=== PATIENT | female | born 1965 | race African-American/Black ===

== ENCOUNTER 2017-01-25 09:25 | Observation (INO) | payer SELFPAY ==
[~2017-01-25] VITALS: Ht 165.1 cm; Wt 52.3 kg
[~2017-01-25 09:25] MED LIST: SULF1SOL4 OD; Z.0.NO CURRENT MEDS
[2017-01-25 09:28] VITALS: BP 118/72; PULSE 120; RESP 24; TEMP 98; O2SAT 100
--- NOTE | 2017-01-25 09:54 | PD ---
HPI Chief Complaint: Cold / Flu Symptoms Time Seen by Provider: 09:48 Travel History International Travel<30 days: No Contact w/Intl Traveler<30days: No Traveled to known affect area: No History of Present Illness HPI 51-year-old female presents to the emergency Department with complaint of nasal congestion, cough, chest congestion, fever, body aches since Friday. Reports MAXIMUM TEMPERATURE of 100.8. Has not taken her temperature since Friday but has felt subjective fever and chills. Denies sore throat or ear pain. Denies chest pain, chest tightness, shortness breath, wheezing. Denies nausea, vomiting, abdominal pain. Reports decreased appetite. Denies change in urine or stool. Has tried taking TheraFlu with good relief of symptoms for a short amount of time. No one else with similar symptoms. Did not receive the flu vaccine this year. Does not have an established primary care provider at this time. Denies significant past medical history. Denies allergies. No other modifying factors or associated signs and symptoms. PFSH Past Medical History Medical History: Denies Significant Hx Hx Anticoagulant Therapy: No Heart Rhythm Problems: No Cardiac Catheterization: No Cardiovascular Problems: No High Cholesterol: No Chemotherapy: No Congestive Heart Failure: No Cerebrovascular Accident: No Diabetes: No Hypertension: No Respiratory: No Myocardial Infarction: No ?: Unknown LMP: 01/20/17 Tubal Ligation: Yes Past Surgical History Coronary Artery Bypass Graft: No Social History Alcohol Use: Yes Tobacco Use: Yes Substance Use: No Allergies-Medications (Allergen,Severity, Reaction): Coded Allergies: No Known Allergies (Verified , 01/25/17) Reported Meds & Prescriptions Reported Meds & Active Scripts Active Bleph-10 (Sulfacetamide Sodium) 5 Ml Soln 1 Drop OD Q3H Reported No Current Meds (Miscellaneous Medication) [facility] Review of Systems Except as stated in HPI: all other systems reviewed are Neg Physical Exam Narrative GENERAL: Thin, female patient, in no acute distress; afebrile , nontoxic-appearing SKIN: Warm and dry. No rash. HEAD: Atraumatic. Normocephalic. EYES: Pupils equal and round at 3 mm with brisk reaction. No scleral icterus. No injection or drainage. PERRLA. ENT: Mucosa pink and moist. No erythema or exudates. No uvular edema. No uvular , palatal, or tonsillar deviation. Airway patent. EARS: Bilateral pinnae and external canals appear within normal limits. Bilateral tympanic membranes without erythema, dullness or perforation. NECK: Trachea midline. No lymphadenopathy. CARDIOVASCULAR: Tachycardic rate and rhythm in the 110's. No murmur appreciated. RESPIRATORY: No accessory muscle use. Clear to auscultation. Breath sounds equal bilaterally. GASTROINTESTINAL: Abdomen soft, non-tender, nondistended. Hepatic and splenic margins not palpable. Bowel sounds are active 4 quadrants. MUSCULOSKELETAL: No obvious deformities. No clubbing. No cyanosis. No edema. NEUROLOGICAL: Awake and alert. Oriented 3. No obvious cranial nerve deficits. Motor grossly within normal limits. Normal speech. Moves all extremities. 5/5 strength to all extremities. PSYCHIATRIC: Appropriate mood and affect; insight and judgment normal. Data Data Last Documented VS Vital Signs Date Time Temp Pulse Resp B/P Pulse Ox O2 Delivery O2 Flow Rate FiO2 01/25/17 09:28 98.0 120 24 118/72 100 Room Air Orders Influenzae A/B Antigen (01/25/17 09:40) Ibuprofen (Motrin) (01/25/17 10:00) Chest, Pa & Lat (01/25/17 09:44) MDM Medical Decision Making Medical Screen Exam Complete: Yes Emergency Medical Condition: Yes Medical Record Reviewed: Yes Differential Diagnosis Influenza, pneumonia, bronchitis, URI Narrative Course 51-year-old female with cold/flu symptoms since Friday. She is afebrile and nontoxic-appearing in the ER. Her heart rate is in the 110s on physical exam. Patient denies chest pain, chest tightness, shortness of breath. Her lungs are clear and equal throughout. She is in no acute distress and oxygen saturation is 100% on room air. Patient given Gatorade at the bedside and is tolerating well without nausea or vomiting. Ibuprofen ordered. Influenza ordered. Chest x-ray ordered. 1038: Last 24 hours Impressions Chest X-Ray 01/25/17 0944 Signed Impressions: Service Date/Time: Friday, January 25, 2017 10:11 - CONCLUSION: Right middle lobe pneumonia. Jeannette Suárez MD 1045: I reevaluated the patient and her heart rate is still elevated at 110 bpm. Patient is mildly tachypnea in the low 20s. She is in no acute distress and without retractions or tachypnea. I discussed the patietn with Dr. Almaraz, my attending physician. She agrees the patient needs to be moved to a medical bed for further treatment and evaluation. The patient agrees to this plan also. See Dr. Almaraz note for final disposition. Diagnosis Primary Impression: Right middle lobe pneumonia Qualified Code: J18.1 - Pneumonia of right middle lobe due to infectious organism Cristin Cruz [facility] Jan 25, 2017 09:54
[2017-01-25] MEDS ORDERED: IBUPROFEN 800 MG TAB PO ONE (10:00)
--- NOTE | 2017-01-25 10:20 | RADRPT ---
EXAM DATE/TIME: 01/25/2017 10:11 [place] COMPARISON: No previous studies available for comparison. INDICATIONS : Cough and Congestion MEDICAL HISTORY : None. SURGICAL HISTORY : None. ENCOUNTER: Initial ACUITY: 4 - 6 days PAIN SCORE: 5/10 LOCATION: Bilateral chest FINDINGS: PA lateral views of the lungs are significant for air space consolidation involving the right middle lobe consistent with pneumonia. The remainder of the lungs are clear. Heart size is normal. Osseous s tructures are unremarkable. CONCLUSION: Right middle lobe pneumonia. Jeannette Suárez MD on January 25, 2017 at 10:18 Board Certified Radiologist. This report was verified electronically.
[2017-01-25] MEDS ORDERED: SODIUM CHLORIDE 0.9% FLUSH 10 ML FLUSH IVF PRN (11:15)
[2017-01-25] MEDS ORDERED: cefTRIAXone INJ 1,000 MG in SODIUM CHLORIDE 0.9% INJ 100 ML IV ONE (11:15)
[2017-01-25] MEDS ORDERED: AZITHROMYCIN INJ 500 MG in SODIUM CHLOR 0.9% 250 ML INJ 250 ML IV ONE (11:15)
[2017-01-25 11:26] LABS: AUTOMATED NEUTROPHIL # 11.5 TH/MM3 (1.8-7.7); BASOPHIL # 0.1 TH/MM3 (0-0.2); BASOPHIL % 0.6 % (0.0-2.0); HEMATOCRIT 33.4 % (35.0-46.0); HEMO FLAGS DIFF FINAL; LYMPH % 4.7 % (9.0-44.0); LYMPHOCYTE # 0.6 TH/MM3 (1.0-4.8); MEAN CELL VOLUME 89.6 FL (80.0-100.0); MEAN CORPUSCULAR HEMOGLOBIN 30.9 PG (27.0-34.0); MEAN CORPUSCULAR HGB CONC 34.4 % (32.0-36.0); MONO % 3.9 % (0.0-8.0); NEUT % 90.8 % (16.0-70.0); PLATELET COUNT 240 TH/MM3 (150-450); RED BLOOD COUNT 3.73 MIL/MM3 (4.00-5.30); WHITE BLOOD COUNT 12.7 TH/MM3 (4.0-11.0)
--- NOTE | 2017-01-25 11:30 | PD ---
Physical Exam Date Seen by Provider: Jan 25, 2017 Time Seen by Provider: 11:20 Narrative Patient was sent to us from fast track because of pneumonia. Patient reports onset of symptoms approximately 4 days ago. She has had a cough and fever. Chest x-ray done in fast track shows a right middle lobe pneumonia. Patient denies any known drug allergies. Data Data Last Documented VS Vital Signs Date Time Temp Pulse Resp B/P Pulse Ox O2 Delivery O2 Flow Rate FiO2 01/25/17 11:45 17 01/25/17 10:57 99 Room Air 01/25/17 09:28 98.0 120 118/72 Orders Influenzae A/B Antigen (01/25/17 09:40) Ibuprofen (Motrin) (01/25/17 10:00) Chest, Pa & Lat (01/25/17 09:44) Complete Blood Count With Diff (01/25/17 11:01) Comprehensive Metabolic Panel (01/25/17 11:01) Lactic Acid Sepsis Protocol (01/25/17 11:01) Blood Culture (01/25/17 11:01) Sodium Chloride 0.9% Flush (Ns Flush) (01/25/17 11:15) Ceftriaxone Inj (Rocephin Inj) (01/25/17 11:15) Azithromycin Inj (Zithromax Inj) (01/25/17 11:15) Sodium Chlor 0.9% 1000 Ml Inj (Ns 1000 M (01/25/17 12:15) Sodium Chlor 0.9% 1000 Ml Inj (Ns 1000 M (01/25/17 12:15) Admit Order (Ed Use Only) (01/25/17 12:15) Labs Laboratory Tests Test 01/25/17 01/25/17 11:11 11:20 Lactic Acid Level 4.8 mmol/L White Blood Count 12.7 TH/MM3 Red Blood Count 3.73 MIL/MM3 Hemoglobin 11.5 GM/DL Hematocrit 33.4 % Mean Corpuscular Volume 89.6 FL Mean Corpuscular Hemoglobin 30.9 PG Mean Corpuscular Hemoglobin 34.4 % Concent Red Cell Distribution Width 14.0 % Platelet Count 240 TH/MM3 Mean Platelet Volume 8.2 FL Neutrophils (%) (Auto) 90.8 % Lymphocytes (%) (Auto) 4.7 % Monocytes (%) (Auto) 3.9 % Eosinophils (%) (Auto) 0.0 % Basophils (%) (Auto) 0.6 % Neutrophils # (Auto) 11.5 TH/MM3 Lymphocytes # (Auto) 0.6 TH/MM3 Monocytes # (Auto) 0.5 TH/MM3 Eosinophils # (Auto) 0.0 TH/MM3 Basophils # (Auto) 0.1 TH/MM3 CBC Comment DIFF FINAL Differential Comment Sodium Level 133 MEQ/L Potassium Level 3.1 MEQ/L Chloride Level 101 MEQ/L Carbon Dioxide Level 19.0 MEQ/L Anion Gap 13 MEQ/L Blood Urea Nitrogen 13 MG/DL Creatinine 1.25 MG/DL Estimat Glomerular Filtration 55 ML/MIN Rate Random Glucose 192 MG/DL Calcium Level 8.7 MG/DL Total Bilirubin 0.7 MG/DL Aspartate Amino Transf 21 U/L (AST/SGOT) Alanine Aminotransferase 20 U/L (ALT/SGPT) Alkaline Phosphatase 96 U/L Total Protein 7.6 GM/DL Albumin 3.0 GM/DL MDM Supervised Visit with KATRINA: Yes Narrative Course Last Impressions Chest X-Ray 01/25/17 0944 Signed Impressions: Service Date/Time: Wednesday, January 25, 2017 10:11 - CONCLUSION: Right middle lobe pneumonia. Jeannette Suárez MD The chest x-ray was independently viewed by me. I have initiated a pneumonia workup including blood cultures, sputum culture, empiric antibiotic treatment and IV fluid resuscitation. CBC & BMP Diagram 01/25/17 11:20 Lactic acid is 4.8. Diagnosis Primary Impression: Right middle lobe pneumonia Qualified Code: J18.1 - Pneumonia of right middle lobe due to infectious organism Admitting Information Admitting Physician Requests: Admit Additional Instruction: Ibuprofen or Tylenol as directed and as needed to reduce fever; may alternate ibuprofen and Tylenol as needed every 3 hours to minimize fever [id number] cough and cold medications as directed and as needed for symptom management Get plenty of sleep/rest Drink plenty of fluids to prevent dehydration [place] diet to encourage nutrition such as crackers, fruit, applesauce, toast, soup etc. Use an air humidifier/turn off ceiling fans Follow-up with your primary care provider within 1 day Return immediately to the emergency department with worsening of symptoms Scripts No Active Prescriptions or Reported Meds Condition: Stable Nati Almaraz MD Jan 25, 2017 11:30
[2017-01-25 11:43] LABS: ANION GAP 13 MEQ/L (5-15); AST (GOT) 21 U/L (15-37); BLOOD UREA NITROGEN 13 MG/DL (7-18); CHLORIDE 101 MEQ/L (98-107); GLOMERULAR FILTRATION RATE 55 ML/MIN (>89); POTASSIUM 3.1 MEQ/L (3.5-5.1); SODIUM (NA) 133 MEQ/L (136-145)
[2017-01-25 11:47] LABS: ALKALINE PHOSPHATASE 96 U/L (45-117); ALT (GPT) 20 U/L (10-53); TOTAL BILIRUBIN ADULT 0.7 MG/DL (0.2-1.0)
[2017-01-25] MEDS ORDERED: SODIUM CHLOR 0.9% 1000 ML INJ 1,000 ML IV ONE ×2 (12:15)
[2017-01-25 13:18] LABS: LACTIC ACID GHOST NOT REPORTABLE
[2017-01-25 13:32] VITALS: BP 120/77; PULSE 96; RESP 18; TEMP 98.9; O2SAT 99
[2017-01-25 13:38] VITALS: BP 120/77; TEMP 98.9
[2017-01-25 13:50] VITALS: BP 137/91; PULSE 107; RESP 20; TEMP 99
--- NOTE | 2017-01-25 14:11 | HHI.HP ---
HPI Service Family Medicine Primary Care Physician No Primary Care Physician Admission Diagnosis pneumonia Diagnoses: International Travel<30 Days: No Contact w/Intl Traveler<30days: No Known Affected Area: No History of Present Illness Patient is a 51-year-old female with no significant past medical history presenting due to cough, fever, chills, body aches found to have a right middle lobe pneumonia. Her symptoms have been getting worse and this prompted her to go to the ED. Patient reports that she developed a cough on Friday night. Cough is nonproductive. She has had a fever with a Tmax of 100.8 on Friday, also endorses chills, myalgias, decreased appetite. She tried taking Theraflu which did not help significantly. Pts boyfriend, who is currently hospitalized for pneumonia on , has had similar symptoms and reports that several of his coworkers have also been ill. Denies SOB, she endorses chest pain which she attributes to persistent coughing. Pt denies any drug allergies. (Stephanie Yates MD R2) Review of Systems Constitutional: COMPLAINS OF: Fever, Weight loss, Chills Eyes: DENIES: Vision loss Ears, nose, mouth, throat: DENIES: Throat pain Respiratory: COMPLAINS OF: Cough, DENIES: Sputum production, Shortness of breath Cardiovascular: COMPLAINS OF: Chest pain Gastrointestinal: COMPLAINS OF: Nausea, DENIES: Abdominal pain Musculoskeletal: COMPLAINS OF: Muscle aches Integumentary: DENIES: Rash Neurologic: COMPLAINS OF: Tremor (shivering which she attributes to chills) Psychiatric: DENIES: Mood changes (Stephanie Yates MD R2) Past Family Social History Past Medical History Denies Past Surgical History BTL Reported Medications Reported Meds & Active Scripts Active No Active Prescriptions or Reported Medications (Stephanie Yates MD R2) Allergies: Coded Allergies: No Known Allergies (Verified , 01/25/17) Active Ordered Medications Inpatient Medications Acetaminophen (Tylenol) 650 mg Q4H PRN PO TEMP > 100.4 Last administered on 01/25 16:16; Start 01/25/17 at 14:30 Albuterol/ Ipratropium (Duoneb Neb) 1 ampule Q3HR NEB PRN NEB SOB/WHEEZING Last administered on 01/25/17 20:51; Start 01/25/17 at 20:15 Azithromycin (Zithromax) 500 mg DAILY PO ; Start 01/26/17 at 09:00 Azithromycin 500 mg/Sodium Chloride 250 ml @ 250 mls/hr ONCE ONCE IV Last administered on 01/25/17 11:22; Start 01/25/17 at 11:15; Stop 01/25/17 at 12:14; Status DC Ceftriaxone Sodium 1000 mg/ Sodium Chloride 100 ml @ 200 mls/hr ONCE ONCE IV Last administered on 01/25/17 11:21; Start 01/25/17 at 11:15; Stop 01/25/17 at 11: 44; Status DC Ceftriaxone Sodium/Sodium Chloride (Rocephin Inj/NS Inj) 100 ml @ 200 mls/hr Q24H IV Last administered on 01/25/17 16:14; Start 01/25/17 at 15:00 Flumazenil (Romazicon Inj) 0.2 mg Q1M PRN IV PUSH SEE LABEL COMMENTS; Start 01/25/17 at 14:30 Heparin Sodium (Porcine) (Heparin Inj) 5,000 units Q8H SQ Last administered on 01/25/17 16:14; Start 01/25/17 at 16:00 Ibuprofen 800 mg 800 mg ONCE ONCE PO Last administered on 01/25/17 10:47; Start 01/25/17 at 10:00; Stop 01/25/17 at 10:01; Status DC Lorazepam (Ativan Inj) 2 mg Q15M PRN IV PUSH CIWA > 20; Start 01/25/17 at 14:30 Lorazepam (Ativan) 2 mg Q2H PRN PO CIWA 11-14; Start 01/25/17 at 14:30 Magnesium Hydroxide (Milk Of Magnesia Liq) 30 ml Q12H PRN PO CONSTIPATION; Start 01/25/17 at 14:30 Naloxone HCl (Narcan Inj) 0.4 mg UNSCH PRN IV SEE LABEL COMMENTS; Start at 14:30 Ondansetron HCl (Zofran Inj) 4 mg Q6H PRN IVP NAUSEA OR VOMITING; Start at 14:30 Sodium Chloride (NS 1000 ml Inj) 1,000 ml @ 100 mls/hr Q10H IV Last administered on 01/25/17 14:58; Start 01/25/17 at 14:30 Sodium Chloride 2 ml 2 ml BID IVF Last administered on 01/25/17t 20:51; Start at 21:00 Family History Denies Mother and father having any medical problems Social History Lives at home with indigo. Smokes 1PPD Drinks 4 beers daily Denies illicit drug use Currently works at [employer], for the past 14 years (Stephanie Yates MD R2) Physical Exam Vital Signs Vital Signs Date Time Temp Pulse Resp B/P Pulse Ox O2 Delivery O2 Flow Rate FiO2 01/25/17 13:38 98.9 98 17 120/77 99 01/25/17 13:32 98.9 96 18 120/77 99 Room Air 01/25/17 11:45 17 01/25/17 10:57 18 99 Room Air 01/25/17 09:28 98.0 120 24 118/72 100 Room Air Physical Exam GENERAL: This is a well-nourished, well-developed patient, shivering in bed, in no acute respiratory distress. SKIN: No rashes, ecchymoses or lesions. HEAD: Atraumatic. Normocephalic. EYES: Pupils equal round and reactive. Extraocular motions intact. No scleral icterus. No injection or drainage. ENT: Nose without bleeding, purulent drainage or septal hematoma. Throat without erythema, tonsillar hypertrophy or exudate. Uvula midline. Airway patent. NECK: Trachea midline. No JVD or lymphadenopathy. Supple, nontender, no meningeal signs. CARDIOVASCULAR: Tachycardic rate, regular rhythm without murmurs, gallops, or rubs. RESPIRATORY: Clear to auscultation. Breath sounds equal bilaterally. No wheezes , rales, or rhonchi. Normal work of breathing. GASTROINTESTINAL: Abdomen soft, non-tender, nondistended. No hepato-splenomegaly , or palpable masses. No guarding. + Bowel sounds MUSCULOSKELETAL: Extremities without clubbing, cyanosis, or edema. No joint tenderness, effusion, or edema noted. No calf tenderness. Negative Homans sign bilaterally. NEUROLOGICAL: Awake and alert. Cranial nerves II through XII intact. Motor and sensory grossly within normal limits. Five out of 5 muscle strength in all muscle groups. Normal speech. Laboratory Laboratory Tests Test 01/25/17 01/25/17 01/25/17 11:11 11:20 13:20 Lactic Acid Level 4.8 1.2 White Blood Count 12.7 Red Blood Count 3.73 Hemoglobin 11.5 Hematocrit 33.4 Mean Corpuscular Volume 89.6 Mean Corpuscular Hemoglobin 30.9 Mean Corpuscular Hemoglobin 34.4 Concent Red Cell Distribution Width 14.0 Platelet Count 240 Mean Platelet Volume 8.2 Neutrophils (%) (Auto) 90.8 Lymphocytes (%) (Auto) 4.7 Monocytes (%) (Auto) 3.9 Eosinophils (%) (Auto) 0.0 Basophils (%) (Auto) 0.6 Neutrophils # (Auto) 11.5 Lymphocytes # (Auto) 0.6 Monocytes # (Auto) 0.5 Eosinophils # (Auto) 0.0 Basophils # (Auto) 0.1 CBC Comment DIFF FINAL Differential Comment Sodium Level 133 Potassium Level 3.1 Chloride Level 101 Carbon Dioxide Level 19.0 Anion Gap 13 Blood Urea Nitrogen 13 Creatinine 1.25 Estimat Glomerular Filtration 55 Rate Random Glucose 192 Calcium Level 8.7 Total Bilirubin 0.7 Aspartate Amino Transf 21 (AST/SGOT) Alanine Aminotransferase 20 (ALT/SGPT) Alkaline Phosphatase 96 Total Protein 7.6 Albumin 3.0 Date/Time Procedure Status Source Growth 01/25/17 11:20 Aerobic Blood Culture Received Blood Peripheral Pending 01/25/17 11:20 Anaerobic Blood Culture Received Blood Peripheral Pending 01/25/17 10:30 Influenza Types A,B Antigen ([facility]UCKER) - Final Complete Nasal Aspirate NEGATIVE FOR FLU A AND B ANTIGEN.... (Stephanie Yates MD R2) Result Diagram: 01/25/17 1120 01/25/17 1120 Septic Shock Reassessment Heart: Regular rate and rhythm Lungs: Clear Skin: Warm Peripheral Pulses: Bounding Right Radial Bounding Left Radial Bounding Right Popliteal Bounding Left Popliteal Bounding Right Dorsalis Pedis Bounding Left Dorsalis Pedis Bounding Right Posterior Tibial Bounding Left Posterior Tibial Capillary Refill: <2 seconds (Stephanie Yates MD R2) Assessment and Plan Assessment and Plan Patient is a 51-year-old female with no significant past medical history admitted for treatment of right middle lobe pneumonia. Code Status Full Discussed Condition With dw Dr. Najera wdw Dr. Pena (Stephanie Yates MD R2) Attending Attestation Patient seen and examined. Case reviewed and discussed with the resident team. Agree with plan of care as discussed with me and documented in the resident note. pt seen on admission (Beverly Pnea MD) Problem List: (1) Right middle lobe pneumonia Status: Acute Plan: Patient presented due to fever, chills, body aches, persisting cough. Her boyfriend is hospitalized currently with pneumonia as well. Chest x-ray showing a right middle lobe pneumonia. -Rocephin 1 g IV daily -Azithromycin 500 mg po daily -DuoNeb's prn SOB -Tylenol PRN -Zofran PRN (2) Sepsis Status: Acute Plan: Patient meets sepsis criteria with elevated heart rate to 120, leukocytosis with WBC count of 12.7, and a left shift, identified source of infection: Pneumonia. On admission lactic acid elevated to 4.8, 1.2 when rechecked. -See fluids below -See plan for pneumonia (3) Elevated serum creatinine Status: Acute Plan: Creatinine slightly elevated at 1.25. Last creatinine in the EMR is from 08/2010 and was 0.59. Likely due to decreased PO intake. -Fluid as below -Monitor Daily BMP (4) Alcohol use Status: Acute Plan: Patient reports drinking 4 beers per night. Denies hx of withdrawals -We'll check blood ethanol level -[facility] protocol (5) Blood glucose elevated Status: Acute Plan: Blood glucose elevated to 192 despite patient having a decreased appetite over the past several days. -We'll check hemoglobin A1c and UA for glucose/ketones -Patient does not have a primary care provider at this time. (6) FEN/PPX Status: Acute Plan: Fluids: Normal saline at 100 MLS/hour Electrolytes: Sodium slightly low at 133, see fluids above, potassium low at 3.1 , patient given 40 mEq of potassium chloride 1, continue to monitor Nutrition: Regular diet DVT PPX: Heparin (Stephanie Yates MD R2) Problem Qualifiers (1) Right middle lobe pneumonia: Qualified Code: J18.1 - Pneumonia of right middle lobe due to infectious organism (2) Sepsis: Qualified Code: A41.9 - Sepsis, due to unspecified organism Stephanie Yates MD R2 Jan 25, 2017 14:11 Beverly Pena MD Jan 26, 2017 13:59
[2017-01-25] MEDS ORDERED: ONDANSETRON HCL 4 MG/2 ML VIAL IVP PRN (14:30)
[2017-01-25] MEDS ORDERED: NALOXONE HCL 0.4 MG/ML AMP IV PRN (14:30)
[2017-01-25] MEDS ORDERED: MAGNESIUM HYDROXIDE SUSP 30 ML CUP PO PRN (14:30)
[2017-01-25] MEDS ORDERED: ACETAMINOPHEN 325 MG TAB PO PRN (14:30)
[2017-01-25] MEDS ORDERED: LORazepam 2 MG TAB PO PRN (14:30)
[2017-01-25] MEDS ORDERED: FLUMAZENIL 0.5 MG/5 ML VIAL IV PUSH PRN (14:30)
[2017-01-25] MEDS ORDERED: LORazepam 2 MG/ML VIAL IV PUSH PRN ×4 (14:30)
[2017-01-25] MEDS ORDERED: LORazepam 1 MG TAB PO PRN (14:30)
[2017-01-25] MEDS: SODIUM CHLOR 0.9% 1000 ML INJ 1,000 ML IV SCH ×2 (14:58→22:46)
[2017-01-25] MEDS: cefTRIAXone INJ 1,000 MG in SODIUM CHLORIDE 0.9% INJ 100 ML IV SCH (16:14)
[2017-01-25] MEDS: HEPARIN SODIUM - SQ 10,000 UNITS/ML VIAL SQ SCH ×2 (16:14→22:45)
[2017-01-25 20:00] VITALS: BP 106/67; PULSE 100; RESP 16; TEMP 99.9; O2SAT 97
[2017-01-25] MEDS ORDERED: RESP: ALBUTEROL 2.5 MG/IPRATROPIUM 0.5 MG NEB (PRN) NEB (20:15)
[2017-01-25] MEDS: SODIUM CHLORIDE 0.9% FLUSH 10 ML FLUSH IVF SCH (20:51)
[2017-01-25 20:54] VITALS: O2SAT 96
[2017-01-25] MEDS ORDERED: POTASSIUM CHLORIDE 10 MEQ CONTROLLED RELEASE TAB PO ONE (22:00)
[2017-01-25] MEDS ORDERED: cloNIDine HCL 0.1 MG TAB PO PRN (22:15)
[2017-01-26] VITALS (8 sets, daily range): BP systolic 85–134; BP diastolic 49–92; PULSE 70–101; RESP 17–22; TEMP 97–101; O2SAT 99–100
[2017-01-26 08:20] LABS: BASOPHIL # 0.1 TH/MM3 (0-0.2); BASOPHIL % 0.5 % (0.0-2.0); EOSINOPHIL % 0.1 % (0.0-4.0); HEMO FLAGS DIFF FINAL; LYMPH % 10.9 % (9.0-44.0); LYMPHOCYTE # 1.9 TH/MM3 (1.0-4.8); MEAN CELL VOLUME 91.2 FL (80.0-100.0); MEAN CORPUSCULAR HEMOGLOBIN 30.4 PG (27.0-34.0); MEAN CORPUSCULAR HGB CONC 33.4 % (32.0-36.0); MONO % 6.9 % (0.0-8.0); NEUT % 81.6 % (16.0-70.0); PLATELET COUNT 235 TH/MM3 (150-450); RED BLOOD COUNT 3.07 MIL/MM3 (4.00-5.30); RED CELL DISTRIBUTION WIDTH 13.9 % (11.6-17.2); WHITE BLOOD COUNT 17.2 TH/MM3 (4.0-11.0)
[2017-01-26 08:58] LABS: ALKALINE PHOSPHATASE 90 U/L (45-117); ALT (GPT) 22 U/L (10-53); ANION GAP 9 MEQ/L (5-15); AST (GOT) 33 U/L (15-37); BICARBONATE 20.1 MEQ/L (21.0-32.0); BLOOD UREA NITROGEN 4 MG/DL (7-18); CHLORIDE 112 MEQ/L (98-107); GLOMERULAR FILTRATION RATE 148 ML/MIN (>89); SODIUM (NA) 141 MEQ/L (136-145); TOTAL BILIRUBIN ADULT 0.5 MG/DL (0.2-1.0)
[2017-01-26] MEDS ORDERED: BENZONATATE 100 MG CAP PO PRN (09:00)
[2017-01-26] MEDS: SODIUM CHLORIDE 0.9% FLUSH 10 ML FLUSH IVF SCH ×2 (09:12→20:50)
[2017-01-26] MEDS: AZITHROMYCIN 250 MG TAB PO SCH (09:12)
[2017-01-26] MEDS: HEPARIN SODIUM - SQ 10,000 UNITS/ML VIAL SQ SCH ×2 (09:12→15:03)
[2017-01-26] MEDS ORDERED: POTASSIUM CHLORIDE 20 MEQ CONTROLLED RELEASE TAB PO ONE ×2 (10:00→14:00)
[2017-01-26] MEDS: SODIUM CHLOR 0.9% 1000 ML INJ 1,000 ML IV SCH ×2 (10:20→20:30)
[2017-01-26] MEDS: guaiFENesin E.R. 600 MG TAB PO SCH ×2 (10:20→20:50)
[2017-01-26 10:21] LABS: MAGNESIUM 1.9 MG/DL (1.5-2.5)
--- NOTE | 2017-01-26 10:34 | EKG ---
Date Performed: 01/25/2017 Time Performed: 15:52:19 PTAGE: 51 years EKG: SINUS TACHYCARDIA POSSIBLE RIGHT VENTRICULAR CONDUCTION DELAY NONSPECIFIC T-WAVE ABNORMALIT Y ABNORMAL RHYTHM ECG Compared to prior tracing no significant change PREVIOUS TRACING : 09/03/2010 20.34 DOCTOR: Cristobal Fry Interpretating Date/Time 01/26/2017 10:27:23
--- NOTE | 2017-01-26 10:48 | HHI.HP ---
HPI Service Family Medicine Primary Care Physician No Primary Care Physician Admission Diagnosis pneumonia Diagnoses: (1) Right middle lobe pneumonia Diagnosis: Principal (2) Sepsis Diagnosis: Principal (3) Elevated serum creatinine Diagnosis: Principal (4) Alcohol use Diagnosis: Principal (5) Blood glucose elevated Diagnosis: Principal (6) FEN/PPX Diagnosis: Principal International Travel<30 Days: No Contact w/Intl Traveler<30days: No Known Affected Area: No History of Present Illness Ms Cummins is a 51-year-old female with no significant past medical history who presented due to cough, fever, chills, body aches found to have a right middle lobe pneumonia. Her symptoms have been getting worse and this prompted her to go to the ED. Patient reports that she developed a cough on Friday night. Cough was nonproductive, however, she had some phlegm production yesterday. She has had a fever with a Tmax of 100.8 on Friday, also endorses chills, myalgias, decreased appetite. She tried taking Theraflu which did not help significantly. Pts boyfriend, who is currently hospitalized for pneumonia on , has had similar symptoms and reports that several of his coworkers have also been ill. Denies SOB, she endorses chest pain which she attributes to persistent coughing. Pt denies any drug allergies. Review of Systems Other Constitutional: COMPLAINS OF: Fever, Weight loss, Chills Eyes: DENIES: Vision loss Ears, nose, mouth, throat: DENIES: Throat pain Respiratory: COMPLAINS OF: Cough, DENIES: Sputum production, Shortness of breath Cardiovascular: COMPLAINS OF: Chest pain Gastrointestinal: COMPLAINS OF: Nausea, DENIES: Abdominal pain Musculoskeletal: COMPLAINS OF: Muscle aches Integumentary: DENIES: Rash Neurologic: COMPLAINS OF: Tremor (shivering which she attributes to chills) Psychiatric: DENIES: Mood changes Past Family Social History Past Medical History Denies Past Surgical History BTL Allergies: Coded Allergies: No Known Allergies (Verified , 01/25/17) Family History Denies Mother and father having any medical problems Social History [facility]. Smokes 1PPD Drinks 4 beers daily Denies illicit drug use Currently works at [employer], for the past 14 years Physical Exam Vital Signs Vital Signs Date Time Temp Pulse Resp B/P Pulse Ox O2 Delivery O2 Flow Rate FiO2 01/26/17 09:21 100 21 01/26/17 08:14 99.0 86 17 134/76 100 01/26/17 04:00 99.8 88 20 109/69 100 01/26/17 01:00 106/68 01/26/17 00:00 101.0 101 22 111/71 100 01/25/17 20:54 96 01/25/17 20:00 99.9 100 16 106/67 97 01/25/17 13:50 99.0 107 20 137/91 01/25/17 13:38 98.9 98 17 120/77 99 01/25/17 13:32 98.9 96 18 120/77 99 Room Air 01/25/17 11:45 17 01/25/17 10:57 18 99 Room Air Physical Exam GENERAL: This is a well-nourished, well-developed patient, in no acute respiratory distress complaining about having a cough all night and phlegm yesterday otherwise stable SKIN: No rashes, ecchymoses or lesions. HEAD: Atraumatic. Normocephalic. EYES: Pupils equal round and reactive. Extraocular motions intact. No scleral icterus. No injection or drainage. ENT: Nose without bleeding, purulent drainage or septal hematoma. Airway patent. NECK: Trachea midline. No JVD or lymphadenopathy. Supple, nontender, no meningeal signs. CARDIOVASCULAR: Tachycardic rate, regular rhythm without murmurs, gallops, or rubs. RESPIRATORY: Clear to auscultation. Breath sounds equal bilaterally. No wheezes , rales, or rhonchi. Normal work of breathing. GASTROINTESTINAL: Abdomen soft, non-tender, nondistended. No hepato-splenomegaly , or palpable masses. No guarding. + Bowel sounds MUSCULOSKELETAL: Extremities without clubbing, cyanosis, or edema. No joint tenderness, effusion, or edema noted. No calf tenderness. Negative Homans sign bilaterally. NEUROLOGICAL: Awake and alert. Cranial nerves II through XII intact. Motor and sensory grossly within normal limits. Five out of 5 muscle strength in all muscle groups. Normal speech. Laboratory Laboratory Tests Test 01/25/17 01/25/17 01/25/17 01/26/17 11:11 11:20 13:20 05:56 Lactic Acid Level 4.8 1.2 White Blood Count 12.7 17.2 Red Blood Count 3.73 3.07 Hemoglobin 11.5 9.3 Hematocrit 33.4 28.0 Mean Corpuscular Volume 89.6 91.2 Mean Corpuscular Hemoglobin 30.9 30.4 Mean Corpuscular Hemoglobin 34.4 33.4 Concent Red Cell Distribution Width 14.0 13.9 Platelet Count 240 235 Mean Platelet Volume 8.2 8.9 Neutrophils (%) (Auto) 90.8 81.6 Lymphocytes (%) (Auto) 4.7 10.9 Monocytes (%) (Auto) 3.9 6.9 Eosinophils (%) (Auto) 0.0 0.1 Basophils (%) (Auto) 0.6 0.5 Neutrophils # (Auto) 11.5 14.0 Lymphocytes # (Auto) 0.6 1.9 Monocytes # (Auto) 0.5 1.2 Eosinophils # (Auto) 0.0 0.0 Basophils # (Auto) 0.1 0.1 CBC Comment DIFF FINAL DIFF FINAL Differential Comment Sodium Level 133 141 Potassium Level 3.1 3.0 Chloride Level 101 112 Carbon Dioxide Level 19.0 20.1 Anion Gap 13 9 Blood Urea Nitrogen 13 4 Creatinine 1.25 0.53 Estimat Glomerular Filtration 55 148 Rate Random Glucose 192 61 Calcium Level 8.7 7.8 Total Bilirubin 0.7 0.5 Aspartate Amino Transf 21 33 (AST/SGOT) Alanine Aminotransferase 20 22 (ALT/SGPT) Alkaline Phosphatase 96 90 Total Protein 7.6 5.6 Albumin 3.0 2.0 Phosphorus Level 2.2 Magnesium Level 1.9 Ethyl Alcohol Level LESS THAN 3 Date/Time Procedure Status Source Growth 01/25/17 11:20 Aerobic Blood Culture Received Blood Peripheral Pending 01/25/17 11:20 Anaerobic Blood Culture Received Blood Peripheral Pending 01/25/17 10:30 Influenza Types A,B Antigen ([facility]UCKER) - Final Complete Nasal Aspirate NEGATIVE FOR FLU A AND B ANTIGEN.... Result Diagram: 01/26/17 0556 01/26/17 0556 Assessment and Plan Assessment and Plan Patient is a 51-year-old female with no significant past medical history admitted for treatment of right middle lobe pneumonia. Problem List: (1) Right middle lobe pneumonia Status: Acute Plan: Patient presented due to fever, chills, body aches, persisting cough. Her boyfriend is hospitalized currently with pneumonia as well. Chest x-ray showing a right middle lobe pneumonia. -Rocephin 1 g IV daily -Azithromycin 500 mg po daily -DuoNeb's prn SOB, she does not want duonebs -Tylenol PRN -Zofran PRN -cough medicine per pts request (2) Sepsis Status: Acute Plan: Patient meets sepsis criteria with elevated heart rate to 120, leukocytosis with WBC count of 12.7, now 17, and a left shift, identified source of infection: Pneumonia. On admission lactic acid elevated to 4.8, 1.2 when rechecked. -See fluids below -See plan for pneumonia (3) Elevated serum creatinine Status: Acute Plan: Creatinine slightly elevated at 1.25. Last creatinine in the EMR is from 08/2010 and was 0.59. Likely due to decreased PO intake. -Fluid as below -Monitor Daily BMP (4) Alcohol use Status: Acute Plan: Patient reports drinking 4 beers per night. Denies hx of withdrawals -We'll check blood ethanol level -[facility] protocol (5) Blood glucose elevated Status: Acute Plan: Blood glucose elevated to 192 despite patient having a decreased appetite over the past several days. now low -We'll check hemoglobin A1c and UA for glucose/ketones -Patient does not have a primary care provider at this time. (6) FEN/PPX Status: Acute Plan: Fluids: Normal saline at 100 MLS/hour Electrolytes: Sodium slightly low at 133, see fluids above, potassium low at 3.1 , patient given 40 mEq of potassium chloride 1, continue to monitor. given more K today Nutrition: Regular diet, if she eats better it should help correct her electrolytes as she has not been eating for the past few days DVT PPX: Heparin Physician Certification 2 Midnight Certification Type: Admission for Inpatient Services Order for Inpatient Services The services are ordered in accordance with Medicare regulations or non- Medicare payer requirements, as applicable. In the case of services not specified as inpatient-only, they are appropriately provided as inpatient services in accordance with the 2-midnight benchmark. Estimated LOS (days): 3 3 days is the estimated time the patient will need to remain in the hospital, assuming treatment plan goals are met and no additional complications. Post-Hospital Plan: Home Problem Qualifiers (1) Right middle lobe pneumonia: Qualified Code: J18.1 - Pneumonia of right middle lobe due to infectious organism (2) Sepsis: Qualified Code: A41.9 - Sepsis, due to unspecified organism Beverly Pena MD Jan 26, 2017 10:48
[2017-01-26 13:35] LABS: HEMOGLOBIN A1a 1.8 %; HEMOGLOBIN A1b 1.3 %; HEMOGLOBIN Ao 85.1 %; HEMOGLOBIN LA1C 2.4 %; HEMOGLOBIN P3 3.8 %
[2017-01-26] MEDS: cefTRIAXone INJ 1,000 MG in SODIUM CHLORIDE 0.9% INJ 100 ML IV SCH (15:03)
[2017-01-27] VITALS: BP 114/77; PULSE 82; RESP 18; TEMP 97.9; O2SAT 100
[2017-01-27] MEDS: HEPARIN SODIUM - SQ 10,000 UNITS/ML VIAL SQ SCH ×2 (01:15→08:00)
[2017-01-27 04:00] VITALS: BP 150/92; PULSE 90; RESP 18; TEMP 98.5; O2SAT 100
[2017-01-27] MEDS: SODIUM CHLOR 0.9% 1000 ML INJ 1,000 ML IV SCH (06:30)
[2017-01-27 07:22] LABS: AUTOMATED NEUTROPHIL # 10.3 TH/MM3 (1.8-7.7); BASOPHIL # 0.1 TH/MM3 (0-0.2); BASOPHIL % 0.6 % (0.0-2.0); EOSINOPHIL # 0.1 TH/MM3 (0-0.4); EOSINOPHIL % 0.8 % (0.0-4.0); HEMATOCRIT 28.8 % (35.0-46.0); LYMPH % 11.9 % (9.0-44.0); LYMPHOCYTE # 1.6 TH/MM3 (1.0-4.8); MEAN CELL VOLUME 89.9 FL (80.0-100.0); MEAN CORPUSCULAR HEMOGLOBIN 30.4 PG (27.0-34.0); MEAN CORPUSCULAR HGB CONC 33.8 % (32.0-36.0); MONO % 7.9 % (0.0-8.0); NEUT % 78.8 % (16.0-70.0); PLATELET COUNT 327 TH/MM3 (150-450); RED CELL DISTRIBUTION WIDTH 14.3 % (11.6-17.2); WHITE BLOOD COUNT 13.1 TH/MM3 (4.0-11.0)
[2017-01-27 07:52] LABS: POTASSIUM 3.6 MEQ/L (3.5-5.1)
[2017-01-27 08:11] LABS: HEMO FLAGS AUTO DIFF
[2017-01-27] MEDS: AZITHROMYCIN 250 MG TAB PO SCH (08:35)
[2017-01-27] MEDS: guaiFENesin E.R. 600 MG TAB PO SCH (08:35)
[2017-01-27] MEDS: SODIUM CHLORIDE 0.9% FLUSH 10 ML FLUSH IVF SCH (08:35)
[2017-01-27 08:39] VITALS: O2SAT 99
[2017-01-27 08:40] VITALS: BP 155/86; PULSE 84; RESP 20; TEMP 98; O2SAT 99
[2017-01-27 08:56] LABS: BANDS 12 % (0-6); EOSINOPHILS 1 % (0-4); NEUTROPHIL # MANUAL DIFF 10.6 TH/MM3 (1.8-7.7); POLYS (SEG NEUTROPHILS) 69 % (16-70); WBC DIFF SAMPLE 100
[2017-01-27 08:57] LABS: PLATELET ESTIMATE SMEAR NORMAL (NORMAL); PLATELET MORPHOLOGY NORMAL (NORMAL); SCAN/DIFF FINAL DIFF MANUAL
--- NOTE | 2017-01-27 09:33 | HHI.FPPN ---
Subjective Remarks Pt seen and examined this morning. No acute events overnight. AFVSS. Pt reports feeling significantly improved this morning. She continues to have a cough, able to cough up minimal sputum. Reports almost feeling at her baseline. Expresses the desire to go home. (Stephanie Yates MD R2) Objective Vitals Vital Signs Date Time Temp Pulse Resp B/P Pulse Ox O2 Delivery O2 Flow Rate FiO2 01/27/17 08:40 98.0 84 20 155/86 99 01/27/17 08:39 99 21 01/27/17 04:00 98.5 90 18 150/92 100 01/27/17 00:00 97.9 82 18 114/77 100 01/26/17 20:00 98.2 84 20 131/84 100 01/26/17 16:37 99.3 91 18 133/88 100 01/26/17 12:46 98.4 70 19 127/92 99 I/O 01/26/17 01/26/17 01/26/17 01/27/17 01/27/17 01/27/17 07:00 15:00 23:00 07:00 15:00 23:00 Intake Total 1560 ml Output Total 1 ml Balance 1559 ml Intake IV Total 1560 ml Output Stool Total 1 ml # Voids 3 2 2 3 (Stephanie Yates MD R2) Result Diagram: 01/27/1763601/27/17636 Objective Remarks GENERAL: This is a well-nourished, well-developed patient, in no acute respiratory distress SKIN: No rashes, ecchymoses or lesions. ENT: Nose without bleeding, purulent drainage or septal hematoma. Airway patent. NECK: Trachea midline. No JVD or lymphadenopathy. Supple, nontender, no meningeal signs. CARDIOVASCULAR: Regular rate and rhythm without murmurs, gallops, or rubs. RESPIRATORY: Clear to auscultation. Breath sounds equal bilaterally. No wheezes , rales, or rhonchi. Normal work of breathing. GASTROINTESTINAL: Abdomen soft, non-tender, nondistended. No hepato-splenomegaly , or palpable masses. No guarding. + Bowel sounds MUSCULOSKELETAL: Extremities without clubbing, cyanosis, or edema. No joint tenderness, effusion, or edema noted. No calf tenderness. Negative Homans sign bilaterally. NEUROLOGICAL: Awake and alert. Motor and sensory grossly within normal limits. Normal (Stephanie Yates MD R2) A/P Assessment and Plan Patient is a 51-year-old female with no significant past medical history admitted for treatment of right middle lobe pneumonia. DW: Dr. Pena Discharge Planning Anticipate discharge later today. (Stephanie Yates MD R2) Attending Attestation Patient seen and examined. Case reviewed and discussed with the resident team. Agree with plan of care as discussed with me and documented in the resident note. (Beverly Pena MD) Problem List: (1) Right middle lobe pneumonia Status: Acute Plan: Patient presented due to fever, chills, body aches, persisting cough. Her boyfriend was hospitalized with pneumonia as well. Chest x-ray showing a right middle lobe pneumonia. -Rocephin 1 g IV daily -Azithromycin 500 mg po daily -Will transition to PO Levaquin on discharge -DuoNeb's prn SOB, pt no longer desires this medication -Tylenol PRN -Zofran PRN -Mucinex PO BID -Tessalon 200 TID PRN (2) Sepsis Status: Acute Plan: Resolved On admission pt met sepsis criteria with elevated heart rate to 120, leukocytosis with WBC count of 12.7, and a left shift, identified source of infection: Pneumonia. On admission lactic acid elevated to 4.8, 1.2 when rechecked. -While blood cell count now 13.1, decreased from 17.2 yesterday. Pt has been afebrile, HR within normal limits -See fluids below -See plan for pneumonia (3) Elevated serum creatinine Status: Acute Plan: Resolved On admission Creatinine slightly elevated at 1.25. Last creatinine in the EMR is from 08/2010 and was 0.59. Likely due to decreased PO intake. -This morning creatinine wnl at 0.52 -Fluid as below -Monitor Daily BMP (4) Alcohol use Status: Acute Plan: Patient reports drinking 4 beers per night. Denies hx of withdrawals -Blood ethanol level less than 3 -[facility] protocol (5) Tobacco abuse Status: Acute Plan: Pt reports smoking 1PPD -Counseled regarding tobacco cessation (6) FEN/PPX Status: Acute Plan: Fluids: stopped, pt tolerating her diet Electrolytes: within normal limits Nutrition: Regular diet DVT PPX: Heparin (Stephanie Yates MD R2) Problem Qualifiers (1) Right middle lobe pneumonia: Qualified Code: J18.1 - Pneumonia of right middle lobe due to infectious organism (2) Sepsis: Qualified Code: A41.9 - Sepsis, due to unspecified organism Stephanie Yates MD R2 Jan 27, 2017 09:33 Beverly Pena MD Jan 29, 2017 14:01
[2017-01-27] MEDS ORDERED: LEVA750T PO (11:47)
[2017-01-27] MEDS ORDERED: BENZ100 PO (11:47)
[2017-01-27] MEDS ORDERED: MUCI600T PO (11:47)
[2017-01-27] MEDS ORDERED: ACET325T PO (11:48)
--- NOTE | 2017-01-27 11:49 | HHI.DCPOC ---
Discharge Care Plan Diagnosis: (1) Right middle lobe pneumonia (2) Sepsis Goals to Promote Your Health * To prevent worsening of your condition and complications * To maintain your health at the optimal level Directions to Meet Your Goals Take your medications as prescribed Follow your dietary instruction Follow activity as directed Keep your appointments as scheduled Take your immunizations and boosters as scheduled If your symptoms worsen call your PCP, if no PCP go to Urgent Care Center or Emergency Room Smoking is Dangerous to Your Health. Avoid second hand smoke Call the 24-hour hour crisis hotline for domestic abuse at Stephanie Yates MD R2 Jan 27, 2017 11:49
[2017-01-27 12:43] VITALS: BP 131/91; PULSE 77; RESP 20; TEMP 96.8; O2SAT 99
[2017-01-27 13:55] LABS: CALCIUM-PROTEIN CORRECTED 9.1 MG/DL (8.5-10.1)
== END 2017-01-27 13:28 | disposition home or self-care (01) ==
LOC: NEPD 09:25 → NEDA 12:16 → INTOOBSV 12:16 → N05A 13:49 → UNDODISIN 01-27 13:28
PROVIDERS: ADMIT Family Medicine; ATTEND Family Medicine
DX: J18.1 Lobar pneumonia, unspecified organism (principal); R63.0 Anorexia; F17.210 Nicotine dependence, cigarettes, uncomplicated; R06.82 Tachypnea, not elsewhere classified; A41.9 Sepsis, unspecified organism; R79.89 Other specified abnormal findings of blood chemistry; R73.9 Hyperglycemia, unspecified
CPT/HCPCS: 71020; 80048; 80053; 80307; 83036; 83605; 83735; 84100; 84132; 84155; 85007; 85025; 85027; 87040; 87804; 93005; 94150; 94664; 94667; 94668; 96365; 96368; 97162; 99284; G0378; J0456; J0696; J1644; J7030; J7050